=== PATIENT | male | born 1995 | race Caucasian/White ===

== ENCOUNTER → 2020-10-20 | Outpatient (BNVA) | payer OTHER, SELFPAY | PROVIDERS: Visit Provider Internal Medicine | DX: M23.92 Unspecified internal derangement of left knee (principal) | CPT/HCPCS: 99203 ==

== ENCOUNTER → 2020-10-27 10:31 | Outpatient (BNVA) | payer OTHER, SELFPAY | PROVIDERS: Visit Provider Internal Medicine | DX: S83.002A Unspecified subluxation of left patella, initial encounter (principal); X58.XXXA Exposure to other specified factors, initial encounter | CPT/HCPCS: 99213 ==

== ENCOUNTER → 2020-11-03 14:05 | Outpatient (BNVA) | payer OTHER, SELFPAY | PROVIDERS: Visit Provider Internal Medicine | DX: S83.002D Unspecified subluxation of left patella, subsequent encounter (principal); X58.XXXD Exposure to other specified factors, subsequent encounter | CPT/HCPCS: 99213 ==

== ENCOUNTER → 2020-11-10 14:56 | Outpatient (BNVA) | payer OTHER, SELFPAY | PROVIDERS: Visit Provider Internal Medicine | DX: S83.002D Unspecified subluxation of left patella, subsequent encounter (principal); X58.XXXD Exposure to other specified factors, subsequent encounter | CPT/HCPCS: 99213 ==

== ENCOUNTER 2020-11-15 19:40 | Outpatient (REF) | payer OTHER, SELFPAY ==
--- NOTE | ~2020-11-15 | MR_ITS ---
EXAMINATION: MR KNEE WITHOUT CONTRAST, LEFT CLINICAL INFORMATION: Left patella subluxation, twisting injury, painful with weightbearing. Patient reports work injury with anterior, medial, lateral pain, swelling with symptoms since 10/19/2020. COMPARISON: None. TECHNIQUE: MRI of the knee without contrast was performed using routine sequences on a high-field scanner. FINDINGS: MENISCI: Medial Meniscus: Intact. Lateral Meniscus: Intact. LIGAMENTS: Cruciate: Intact. Collateral: There is edema adjacent to a minimally irregular origin of the medial collateral ligament. There is some streaky edema and irregularity that extends from this region involving the posterior aspect of the medial patellofemoral retinacular complex consistent with a mild sprain. EXTENSOR MECHANISM: The quadriceps and patellar tendons are intact. As described above, there appears to be a mild sprain of the posterior aspect of the medial patellofemoral retinacular complex. ARTICULAR CARTILAGE/BONE: Patellofemoral Compartment: The patella is moderately laterally subluxed. There is a shallow trochlear groove. There is mild bone marrow edema in the medial aspect of the patella. There is no apparent fracture or chondral defect. There appears to be some flattening/remodeling of the lateral margin of the lateral femoral trochlea. The femoral trochlear cartilage appears intact. Medial Compartment: Normal. Lateral Compartment: The cartilage is intact. There is moderate bone marrow edema in the anterolateral aspect of the lateral femoral condyle. JOINT FLUID AND BURSAE: Within normal limits. MR/MR knee LT wo con IMPRESSION: 1. Moderate lateral subluxation of the patella. Shallow trochlear groove. 2. Mild sprain of the posterior aspect of the medial patellofemoral retinacular complex. Mild bone contusion in the medial patella. Moderate bone contusion in the anterolateral femoral condyle. This is suspicious for a transient lateral patellar dislocation. 3. Possible minor sprain of the proximal medial collateral ligament.
== END 2020-11-15 19:41 | disposition home or self-care (01) ==
LOC: HO.MRI 19:40
PROVIDERS: PCP Nurse Practitioner Family; Visit Provider Internal Medicine
DX: M25.562 Pain in left knee (principal)
CPT/HCPCS: 73721

== ENCOUNTER → 2020-11-17 15:06 | Outpatient (BNVA) | payer OTHER, SELFPAY | PROVIDERS: Visit Provider Physician Assistant | DX: S83.005A Unspecified dislocation of left patella, initial encounter (principal) | CPT/HCPCS: 99202 ==

== ENCOUNTER → 2022-05-08 09:28 | Outpatient (BNVA) | payer OTHER, SELFPAY | PROVIDERS: PCP Nurse Practitioner Family; Visit Provider Physician Assistant Medical | DX: S61.215A Laceration without foreign body of left ring finger without damage to nail, initial encounter (principal); W26.8XXA Contact with other sharp object(s), not elsewhere classified, initial encounter; Z23 Encounter for immunization | CPT/HCPCS: 12001; 90715; 99204 ==

== ENCOUNTER → 2022-05-10 14:59 | Outpatient (BNVA) | payer OTHER, SELFPAY | PROVIDERS: PCP Nurse Practitioner Family; Visit Provider Physician Assistant | DX: S61.215A Laceration without foreign body of left ring finger without damage to nail, initial encounter (principal); W26.8XXA Contact with other sharp object(s), not elsewhere classified, initial encounter | CPT/HCPCS: 99213 ==

== ENCOUNTER → 2022-05-17 14:21 | Outpatient (BNVA) | payer OTHER, SELFPAY | PROVIDERS: PCP Nurse Practitioner Family; Visit Provider Physician Assistant | DX: S61.214A Laceration without foreign body of right ring finger without damage to nail, initial encounter (principal); W26.8XXA Contact with other sharp object(s), not elsewhere classified, initial encounter | CPT/HCPCS: 99212; 99213 ==

== ENCOUNTER → 2024-03-17 12:06 | Outpatient (BNVA) | payer OTHER, SELFPAY | PROVIDERS: PCP Nurse Practitioner Family; Visit Provider Physician Assistant Medical | DX: S96.812A Strain of other specified muscles and tendons at ankle and foot level, left foot, initial encounter (principal); X50.1XXA Overexertion from prolonged static or awkward postures, initial encounter | CPT/HCPCS: 29515; 73610; 99203; J1885 ==

== ENCOUNTER → 2024-03-23 15:31 | Outpatient (BNVA) | payer OTHER, SELFPAY | PROVIDERS: PCP Nurse Practitioner Family; Visit Provider Physician Assistant Medical | DX: S93.422A Sprain of deltoid ligament of left ankle, initial encounter (principal); X50.1XXA Overexertion from prolonged static or awkward postures, initial encounter | CPT/HCPCS: 73700; 99213 ==

== ENCOUNTER 2024-04-02 14:35 | Outpatient (AMB) | payer OTHER, SELFPAY ==
--- NOTE | 2024-04-02 14:39 | A.OFFVIS_ITS ---
Intake Visit Reasons: DEVELOPMENT INTERN-WC high grade L Lat Ankle Sprain DOI 03/17/24 Intake Note: Rojas is a 29 year old male who presents today for a evaluation of his left ankle sprain, DOI 03/17/24. Patient reports he was kneeling and when he was going to stand up his foot feel a sleep and his ankle inverted. He mentions that his pain is very minimal today. Denies numbness and tingling in his toes. Allergies No Known Allergies Allergy (Verified 11/17/20 15:12) HPI HPI DEVELOPMENT INTERN-WC high grade L Lat Ankle Sprain DOI 03/17/24: Details: 29-year-old male who presents in the office today, as a new patient, for an evaluation of high grade left lateral ankle sprain. The patient was [place] [facility] [place] [facility]. The patient had a left ankle injury with edema, and pain. X-rays were obtained which showed no acute avulsion fracture. While in the office today, the patient reports his left ankle inverted when he was standing up from a kneeling position. He mentions minimal pain today. Denies numbness or tingling in his toes. [facility] Social History (Updated 11/17/20 @ 15:12 by SYBIL Liu) Current occupational status: employed Current occupation: Heating cooling tech/rt handed Review of Systems Const All systems reviewed & are unremarkable except as noted in HPI and below Physical Exam Const General: cooperative and no acute distress Orientation/consciousness: patient oriented x3 Resp Effort & Inspection: normal respiratory effort and able to speak in complete sentences Cardio Peripheral pulses: Peripheral pulses 2+ throughout Skin General skin exam: no rashes or lesions noted Neuro General: patient oriented x3 Extrem Other: Left foot/ankle: Normal to inspection. No ecchymosis, erythema, or edema. Tenderness to palpation along the lateral malleolus and the peroneal tendon. Difficulty with dorsiflexion, plantar flexion, pronation and supination due to pain and stiffness. Negative anterior drawer. Sensation intact. Pedal pulse intact. Assessment & Plan Assessment & Plan (1) Left ankle sprain: Code(s): S93.402A - Sprain of unspecified ligament of left ankle, initial encounter Category: Medical Plan Mr. Tyler Gamez is a 29-year-old male who presents in the office today, as a new patient, for an evaluation of high grade left lateral ankle sprain. The patient was referred by [facility] [place] [facility]. The patient had a left ankle injury with edema, and pain. X-rays were obtained which showed no acute avulsion fracture. While in the office today, the patient reports his left ankle inverted when he was standing up from a kneeling position. He mentions minimal pain today. Denies numbness or tingling in his toes. The patient was placed in a tall walking boot, off the shelf. He may weight bear as tolerated. I have placed a referral to physical therapy. The goal is to wean him out of the boot within two weeks. I have provided a work note stating to remain out of work until follow up. Follow-up will be in 4 weeks, or sooner if needed. Orders: Orders PT Evaluation and Treatment 04/02/24 S93.402A - Sprain of unspecified ligament of left ankle, initial encounter Patient Instructions: Scribed by Audelia Sena medical assistant ob gyn, for Merari Nunez PA-C on 04/02/24 at 3:02 pm EST. Coding Level of Care Code New Pt Level 4 (42620) Diagnoses Left ankle sprain S93.402A
== END 2024-04-02 15:05 | disposition home or self-care (01) ==
PROVIDERS: PCP Nurse Practitioner Family; Visit Provider Physician Assistant
DX: S93.402A Sprain of unspecified ligament of left ankle, initial encounter (principal)
CPT/HCPCS: 99204

== ENCOUNTER → 2024-04-02 14:35 | Outpatient (BNVA) | payer OTHER, SELFPAY | PROVIDERS: PCP Nurse Practitioner Family; Visit Provider Physician Assistant | DX: S93.402A Sprain of unspecified ligament of left ankle, initial encounter (principal) | CPT/HCPCS: 99202 ==

== ENCOUNTER 2024-05-04 10:38 | Outpatient (AMB) | payer OTHER, SELFPAY ==
--- NOTE | 2024-05-04 10:45 | A.OFFVIS_ITS ---
Intake Visit Reasons: OV - Left Ankle Sprain DOI 03/17/24 Intake Note: Rojas is a 29 year old male who presents today for a evaluation of his left ankle sprain, DOI 03/17/24. Patient reports he is doing better today. He mentions no pain or discomfort at the moment. Allergies No Known Allergies Allergy (Verified 05/04/24 10:48) HPI HPI OV - Left Ankle Sprain DOI 03/17/24: Details: 29-year-old male who presents in the office today for a follow-up of a high grade left lateral ankle sprain which occurred on 03/17/24. I last saw the patient in the office on 04/02/24 when she was placed in a tall walking boot and may weight bear as tolerated. He was referred to physical therapy with the goal to wean him out of the boot within two weeks. He was provided a work note stating to remain out of work until follow-up. While in the office today, the patient reports he is doing better today. He currently denies any left ankle pain or discomfort. [facility] Social History (Updated 11/17/20 @ 15:12 by SYBIL Liu) Current occupational status: employed Current occupation: Heating cooling tech/rt handed Review of Systems Const All systems reviewed & are unremarkable except as noted in HPI and below Physical Exam Const General: cooperative, healthy appearing and no acute distress Resp Effort & Inspection: normal respiratory effort and able to speak in complete sentences Cardio Rate: regular rate Peripheral pulses: Peripheral pulses 2+ throughout GI Palpation (GI): Soft to palpation Skin Lesions: no lesions Rashes: no rashes Extrem Other: Left ankle: Normal to inspection. No ecchymosis, erythema, or edema. The patient is able to demonstrate dorsiflexion, plantar flexion, pronation and supination. Negative anterior drawer. Sensation intact. Pedal pulse intact. Assessment & Plan Assessment & Plan (1) Left ankle sprain: Code(s): S93.402A - Sprain of unspecified ligament of left ankle, initial encounter Category: Medical Plan Mr. Rojas Gamez is a 29-year-old male who presents in the office today for a follow-up of a high grade left lateral ankle sprain which occurred on 03/17/24. I last saw the patient in the office on 04/02/24 when she was placed in a tall walking boot and may weight bear as tolerated. He was referred to physical therapy with the goal to wean him out of the boot within two weeks. He was provided a work note stating to remain out of work until follow-up. While in the office today, the patient reports he is doing better today. He currently denies any left ankle pain or discomfort. The patient was provided a lace up ankle brace, off the shelf. She can wear the brace at work. I encouraged him to only use the brace as needed for the next two weeks and then to gradually wean out of it to avoid any stiffness in the ankle. He will return back to work on 05/10/24, full-time, regular duty. Follow-up will be PRN with me, or sooner if needed. Patient Instructions: Scribed by Audelia Sena, pediatric medical assistant, for Merari Nunez PA-C on 05/04/24 at 11:20 am EST. Coding Level of Care Code Est Pt Level 3 (55099) Diagnoses Left ankle sprain S93.402A
== END 2024-05-04 11:11 | disposition home or self-care (01) ==
PROVIDERS: PCP Nurse Practitioner Family; Visit Provider Physician Assistant
DX: S93.402A Sprain of unspecified ligament of left ankle, initial encounter (principal)
CPT/HCPCS: 99213

== ENCOUNTER → 2024-05-04 10:38 | Outpatient (BNVA) | payer OTHER, SELFPAY | PROVIDERS: PCP Nurse Practitioner Family; Visit Provider Physician Assistant | DX: S93.402D Sprain of unspecified ligament of left ankle, subsequent encounter (principal); X58.XXXD Exposure to other specified factors, subsequent encounter | CPT/HCPCS: 99212 ==

== ENCOUNTER 2024-05-05 11:00 | Outpatient (RCR) | payer OTHER, SELFPAY ==
--- NOTE | 2024-04-15 13:40 | MHC.PT.EP ---
[facility] [place] Office [place] Office [place] Office [address] Sourav Rivera [address] [phone] F: [phone] F: [phone] F: [phone] F: [phone] Physical Therapy Plan of Care Date of Evaluation: 04/15/24 Date of Surgery: n/a Diagnosis: L ankle sprain Assessment: Patient is a 29 year old male presenting to PT with complaints of pain in his L ankle. Pt reports onset of pain began 03/16/2024 due to rolling his ankle at work. He presents today with impairments in pain, ROM, ankle strength, balance. 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 Pt expresses alf goal of returning to PLOF, and is motivated to work towards this in PT. Clinical presentation today is most consistent with signs and sx associated with L ankle sprain and pt will benefit from skilled PT 2 week x 4 weeks to address the following problems and impairments noted upon evaluation: pain, ROM, ankle strength, balance. These problems limit the patient with the following functional activities: ambulating, stair negotiation, work, ADLs. The prescribed treatment plan of care is medically necessary. Co-morbidities of none were identified and taken into considerations of plan of care. Pt was educated on HEP, role of PT, prognosis, POC. Frequency and Duration: The patient will be seen 2 x week x 4 weeks Short Term Goals: Pt will demonstrate improved L ankle ROM to equal B in 2 weeks. Pt will demonstrate improved L ankle MMT strength to 5/5 in 2 weeks. Pt will demonstrate improved ability to balance on L leg with no UE support in 2 weeks. Mcfp Goals: Pt will demonstrate improved LEFI score by 9 points in 4 weeks for improved functional mobility. Pt will demonstrate ability to tolerate ambulating with min to no pain in 4 weeks for prepare to return to work. Pt will demonstrate ability to complete all ADLs with min to no pain in 4 weeks for return to PLOF. Treatment Plan: Modalities to reduce pain, spasms and effusion. Manual therapy to restore motion and function. Therapeutic exercise to improve strength and flexibility. Neuromuscular re-education for posture and balance. Therapeutic activities to return to functional activities of daily living. Electronically signed by: Genoveva Moy, PT, DPT, ATC Please sign and return to therapist. Thank you for your referral.
--- NOTE | 2024-05-21 13:27 | MHC.PT.DC ---
[facility] [place] Office [place] Office [place] Office [address] Sourav Rivera [address] [phone] F: [phone] F: [phone] F: [phone] F: [phone] Physical Therapy Discharge Report Diagnosis: L ankle sprain Date of Surgery: n/a Date of Evaluation: 04/15/24 Date of Discharge: 05/21/24 Treatments to Date: 5 Cancellations to Date: 3 No Shows to Date: 0 Discharge Status: Discharge Summary: Pt cancelled his last 2 visits and has not rescheduled. Pt was feeling better at last visit and plan was going to be to d/c. Therefore pt to be d/c. Electronically signed by: Genoveva Moy, PT, DPT, ATC Please sign and return to therapist. Thank you for your referral.
== END 2024-05-21 13:27 | disposition home or self-care (01) ==
LOC: HO.PTCHIC 11:00
PROVIDERS: Visit Provider Physician Assistant
DX: S93.402A Sprain of unspecified ligament of left ankle, initial encounter (principal)
CPT/HCPCS: 97110; 97112; 97161; 97530